=== PATIENT | male | born 1980 | race Caucasian/White ===

== ENCOUNTER 2019-02-10 13:29 | Emergency (ER) | payer OTHER ==
[~2019-02-10] VITALS: Ht 177.8 cm; Wt 136.1 kg
[~2019-02-10 13:29] MED LIST: 12 HOUR COLD R120 M1 PO; ACETAMINOPHEN325 M1 PO; ATROPINE 1% EYE D11 OPHTHALMIC; B-COMPLEX-VITA1 EACH PO; CLARITIN10 MG PO; IBUPROFEN 800800 M1 PO; MAGOX 400400 MG PO; MEDROLDOSEPACK PO; NICOTINE TRANSD21 M1 TRANSDERM; NOHOMEMEDICATIONS; NORCO 5-325 TA1 EACH PO; OSELB75 PO; PENICILLIN VK250 MG PO; PENICILLIN VK500 M1 PO; PERCOCET 5-3251 EACH PO; POTASSIUM99 M1 PO; PRED FORTE 1% EY5 M1 OPHTHALMIC; PRILOSEC 20 MG20 MG PO; ROBAXIN500 MG PO; SUBOXONE 8 MG-1 EAC3; SUBOXONE 8 MG-1 EAC3 SUBLING; ZPAK; [UNRECOGNIZED DRUG - REMARK] OPHTHALMIC
[2019-02-10] MEDS ORDERED: EFFEXOR XR150 MG PO (13:46)
[2019-02-10] MEDS ORDERED: ADDERALL 30 MG30 MG PO (13:46)
[2019-02-10 14:08] LABS: ABSOLUTE BASOPHILS 0.1 thou/uL (0.0-0.2); ABSOLUTE EOSINOPHILS 0.1 thou/uL (0.0-0.7); ABSOLUTE LYMPHOCYTES 3.8 thou/uL (0.8-5.3); ABSOLUTE MONOCYTES 1.5 thou/uL (0.0-1.2); ABSOLUTE NEUTROPHILS 7.1 thou/uL (1.6-8.1); BASOPHILS 0.7 %; EOSINOPHILS 0.9 %; HEMATOCRIT 40.3 % (42.0-52.0); HEMOGLOBIN 13.5 gm/dL (14.0-18.0); LYMPHOCYTES 30.3 %; MCH 29.7 pg (26.0-34.0); MCHC 33.6 g/dL (28.0-37.0); MCV 88.4 fL (80.0-100.0); MONOCYTES 11.7 %; MPV 7.8 fl. (7.2-11.1); NUCLEATED RBCS 0 /100WBC; PLATELET COUNT* 368 thou/uL (150-400); POLYS 56.4 %; RBC 4.56 mil/uL (4.50-6.00); RDW-CV 13.3 % (10.5-14.5); WBC 12.5 thou/uL (4.0-11.0)
[2019-02-10 14:24] LABS: PROTIME 9.8 Seconds (9.20-11.50)
[2019-02-10 14:28] LABS: ANION GAP 7 mmol/L (7-16); BUN 15 mg/dL (7-18); CALCIUM 8.7 mg/dL (8.5-10.1); CHLORIDE 100 mmol/L (98-107); CO2 33 mmol/L (21-32); CREATININE 0.9 mg/dL (0.6-1.3); GLUCOSE 99 mg/dL (70-99); POTASSIUM 3.9 mmol/L (3.5-5.1); SODIUM 140 mmol/L (136-145); TROPONIN-I LEVEL <0.06 ng/mL (<0.06)
[2019-02-10 14:30] LABS: ALBUMIN 3.7 g/dL (3.4-5.0); ALKALINE PHOSPHATASE 85 U/L (46-116); LIPASE 102 U/L (73-393); NT-PRO BRAIN NAT PEPTIDE 68 pg/mL (<300); SGOT 16 U/L (15-37); SGPT 34 U/L (30-65); TOTAL BILIRUBIN 0.3 mg/dL (<0.1-1.0)
--- NOTE | 2019-02-10 16:37 | EKG ---
[place] [address] ELECTROCARDIOGRAM REPORT Name: JESSICA RODRIGUEZ Room: [facility]#: [id number] Admission: 02/10/19 Attend Phys: Discharge: Date of : 80 Report #: [id number] THIS REPORT FOR: //name// [facility] ED Test Date: 2019-02-10 Test Time: 13:34:18 Pat Name: JESSICA RODRIGUEZ Department: Room: Gender: M [employer] Attendant: JANELLE : 1980 Requested By: Ayanna Ortiz Order Number: [id number] MD: Keny Blankenship Measurements Intervals [place] Rate: 108 P: 63 MS: 168 QRS: 74 QRSD: 96 T: 28 QT: 331 QTc: 444 Interpretive Statements Sinus tachycardia Probable left atrial enlargement Probable inferior infarct, acute ST elevation, consider anterolateral injury Compared to ECG 05/04/2016 10:54:41 Myocardial infarct finding now present Sinus rhythm no longer present ST (T wave) deviation still present Electronically Signed On 02-10-2019 16:37:43 CDT by Keny Blankenship [email or web address] <ELECTRONICALLY SIGNED> By: Keny Blankenship MD, [facility] 02/10/19 1637 [phone] Keny Blankenship MD, [facility] /EPI
[2019-02-10 17:09] VITALS: BP 115/63
== END 2019-02-10 17:09 | disposition home or self-care (01) ==
LOC: M.ERS 13:29
PROVIDERS: Personal Emergency Response Attendant
DX: R07.2 Precordial pain (principal); F41.0 Panic disorder [episodic paroxysmal anxiety]

== ENCOUNTER 2020-11-28 16:42 | Emergency (ER) | payer OTHER ==
[~2020-11-28] VITALS: Ht 177.8 cm; Wt 136.1 kg
[~2020-11-28 16:42] MED LIST changes: +ADDERALL 30 MG30 MG PO; +EFFEXOR XR150 MG PO
[2020-11-28 17:18] LABS: ABSOLUTE BASOPHILS 0.1 thou/uL (0.0-0.2); ABSOLUTE EOSINOPHILS 0.1 thou/uL (0.0-0.7); ABSOLUTE LYMPHOCYTES 2.4 thou/uL (0.8-5.3); ABSOLUTE MONOCYTES 0.8 thou/uL (0.0-1.2); ABSOLUTE NEUTROPHILS 6.5 thou/uL (1.6-8.1); BASOPHILS 1.2 %; EOSINOPHILS 1.4 %; HEMATOCRIT 33.7 % (42.0-52.0); HEMOGLOBIN 11.3 gm/dL (14.0-18.0); LYMPHOCYTES 24.4 %; MCH 29.7 pg (26.0-34.0); MCHC 33.6 g/dL (28.0-37.0); MCV 88.4 fL (80.0-100.0); MONOCYTES 8.2 %; MPV 6.7 fl. (7.2-11.1); NUCLEATED RBCS 0 /100WBC; PLATELET COUNT* 414 thou/uL (150-400); POLYS 64.8 %; RBC 3.81 mil/uL (4.50-6.00); RDW-CV 13.2 % (10.5-14.5)
[2020-11-28 17:37] LABS: APTT 26.2 Seconds (25.0-31.3); CREATININE 0.8 mg/dL (0.6-1.3); POTASSIUM 3.9 mmol/L (3.5-5.1); PROTIME 10.9 Seconds (9.20-11.50)
[2020-11-28 17:47] LABS: ALBUMIN 3.2 g/dL (3.4-5.0); MAGNESIUM 2.4 mg/dL (1.8-2.4); TOTAL BILIRUBIN 0.3 mg/dL (<0.1-1.0); TOTAL PROTEIN 7.9 g/dL (6.4-8.2)
[2020-11-28 19:48] VITALS: BP 112/68
--- NOTE | 2020-11-29 09:29 | EKG ---
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: : 1980 Requested By: Ubaldo Burk Order Number: [id number] MD: Heraclio Morin Measurements Intervals [place] Rate: 103 P: 54 MS: 162 QRS: 84 QRSD: 90 T: 29 QT: 342 QTc: 448 Interpretive Statements Sinus tachycardia Borderline T wave abnormalities Nondiagnostic inferior Q waves Compared to ECG 02/10/2019 13:34:18 T-wave abnormality now present Inferior Q's are less prominent ST (T wave) deviation no longer present Electronically Signed On 11-29-2020 9:28:59 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
--- NOTE | 2020-11-29 09:29 | EKG ---
[place] [address] ELECTROCARDIOGRAM REPORT Name: JESSICA RODRIGUEZ Room: 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: [facility] : 1980 Requested By: Ubaldo Burk Order Number: [id number] MD: Heraclio Morin Measurements Intervals [place] Rate: 82 P: 71 UT: 144 QRS: -63 QRSD: 103 T: 61 QT: 381 QTc: 445 Interpretive Statements Sinus rhythm Left anterior fascicular block Abnormal R-wave progression, early transition Compared to ECG 11/28/2020 16:50:03 Left anterior fascicular block now present Sinus tachycardia no longer present T-wave abnormality no longer present Electronically Signed On 11-29-2020 9:29:41 [employer] SUPER[employer] by Heraclio Morin [email or web address] <ELECTRONICALLY SIGNED> By: Heraclio Morin MD, FAC 11/29/20 0929 09 09 Heraclio Morin MD, FAC /EPI
== END 2020-11-28 19:48 | disposition left against medical advice (07) ==
LOC: M.ERS 16:42
PROVIDERS: Emergency Medicine Emergency Medical Services
DX: I31.3 Pericardial effusion (noninflammatory) (principal); R10.13 Epigastric pain; F17.210 Nicotine dependence, cigarettes, uncomplicated; F32.9 Major depressive disorder, single episode, unspecified; F41.9 Anxiety disorder, unspecified; Z79.899 Other long term (current) drug therapy